=== PATIENT | male | born 1980 | race Two or more races ===

== ENCOUNTER 2022-01-20 01:28 | Emergency (ER) | payer OTHER, BC ==
[2022-01-20] VITALS (20 sets, daily range): BP systolic 132–168; BP diastolic 73–101
[~2022-01-20] VITALS: Ht 167.6 cm; Wt 77.0 kg
[2022-01-20 02:06] LABS: GFR > 60 ML/MIN (>=60 (CALC)); GFR FOR AFR.AMER. > 60 ML/MIN (>=60 (CALC))
[2022-01-20 02:07] LABS: HEMATOCRIT 33.4 % (39.0-50.0); HEMOGLOBIN 11.3 g/dl (14.0-18.0); IMMATURE GRANULOCYTES 0.4 % (0.0-5.0); MEAN CELL VOLUME 90.5 fL CALC (80.0-100.0); MEAN CORPUSCULAR HGB 30.6 pG CALC (26.0-32.0); MEAN CORPUSCULAR HGB CONC 33.8 g/dL CAL (32.0-36.0); NEUT# 10.7 thou/uL (1.82-7.42); RED BLOOD COUNT 3.69 mill/uL (4.70-6.10); RED CELL DISTRI WIDTH 11.9 % (11.5-15.5)
[2022-01-20 02:26] LABS: ALBUMIN 3.9 g/dL (3.2-5.0); ALKALINE PHOSPHATASE 68 u/l (38-126); AMYLASE 88 u/l (30-110); ANION GAP 13 (6-22 (CALC)); BILIRUBIN, TOTAL 0.8 mg/dL (0.0-1.4); BUN 16 mg/dL (9-20); BUN/CREATININE RATIO 17 (12-20 (CALC)); CARBON DIOXIDE 23 mmol/l (22-30); CHLORIDE 106 mmol/l (95-108); CREATININE 0.9 mg/dL (0.7-1.3); ETHYL ALCOHOL 0 mg/dl (0-30); GFR > 60 ML/MIN (>=60 (CALC)); GFR FOR AFR.AMER. > 60 ML/MIN (>=60 (CALC)); LIPASE 159 u/l (23-300); POTASSIUM 3.5 mmol/l (3.5-5.1); SGOT/AST 78 u/l (17-59); SODIUM 138 mmol/l (137-146); TOTAL PROTEIN 6.9 g/dL (6.3-8.2)
[2022-01-20 02:27] LABS: ACT PARTIAL THROMBO TIME 21.7 SECONDS (20.0-32.5); PROTHROMBIN TIME 10.4 SECONDS (9.0-12.5)
[2022-01-20] MEDS ORDERED: HYDROCO/APAP1 TA9 PO (04:06)
[2022-01-20 04:15] LABS: URINE BILIRUBIN - DIPSTICK NEGATIVE (NEGATIVE); URINE BLOOD DIPSTICK SMALL (NEGATIVE); URINE COLOR YELLOW; URINE GLUCOSE - DIPSTICK >=1000 mg/dL (NEGATIVE); URINE KETONE NEGATIVE (NEGATIVE); URINE LEUK ESTERASE NEGATIVE (NEGATIVE); URINE PROTEIN - DIPSTICK NEGATIVE (NEG-TRACE); URINE UROBILINOGEN - DIPSTICK 0.2 E.U./dL (0.2)
[2022-01-20 04:17] LABS: URINE NITRITE - DIPSTICK NEGATIVE (Negative)
== END 2022-01-20 11:09 | disposition home or self-care (01) | DRG 605 ==
LOC: ED 01:28
DX: S30.811A Abrasion of abdominal wall, initial encounter (principal); S80.212A Abrasion, left knee, initial encounter; S70.211A Abrasion, right hip, initial encounter; S16.1XXA Strain of muscle, fascia and tendon at neck level, initial encounter; S20.211A Contusion of right front wall of thorax, initial encounter; S70.12XA Contusion of left thigh, initial encounter; S30.1XXA Contusion of abdominal wall, initial encounter; S80.02XA Contusion of left knee, initial encounter; I10 Essential (primary) hypertension; V59.50XA Passenger in pick-up truck or van injured in collision with unspecified motor vehicles in traffic accident, initial encounter
CPT/HCPCS: Q9967

== ENCOUNTER 2022-01-27 11:25 | Emergency (ER) | payer OTHER, BC ==
[~2022-01-27] VITALS: Ht 167.6 cm; Wt 79.0 kg
[~2022-01-27 11:25] MED LIST: HYDROCO/APAP1 TA9 PO
[2022-01-27 11:31] VITALS: BP 137/99
[2022-01-27 11:45] VITALS: BP 154/100
[2022-01-27 12:00] VITALS: BP 139/95
[2022-01-27] MEDS ORDERED: TOPROL XL25 M1 PO (12:03)
[2022-01-27] MEDS ORDERED: FENOFIBRATE145 MG PO (12:04)
[2022-01-27] MEDS ORDERED: HYZAAR1 TA2 PO (12:04)
[2022-01-27] MEDS ORDERED: AMLODIPINE BESY10 MG PO (12:05)
[2022-01-27 12:15] VITALS: BP 153/98
[2022-01-27] MEDS ORDERED: HYDROCO/APAP1 TA9 PO (12:19)
[2022-01-27 12:30] VITALS: BP 146/103
== END 2022-01-27 12:29 | disposition home or self-care (01) | DRG 950 ==
LOC: ED 11:25
DX: S30.1XXD Contusion of abdominal wall, subsequent encounter (principal); S16.1XXD Strain of muscle, fascia and tendon at neck level, subsequent encounter; I10 Essential (primary) hypertension; V58 Occupant of pick-up truck or van injured in noncollision transport accident